=== PATIENT | male | born 1975 | race Caucasian/White ===

== ENCOUNTER → 2019-01-01 11:59 | Outpatient (CLI) | payer OTHER, SELFPAY ==
[2015-12-17 02:15] VITALS: BMI 27.7
[2019-01-01 14:29] LABS: Cholesterol 169 mg/dL (200); High Density Lipoprotein 36 mg/dL; Triglycerides 163 mg/dL; Very Low Density Lipoprotein 33 mg/dL (5-40)
== END ==
PROVIDERS: Family Provider Family Medicine; PCP Family Medicine; Referring Provider Family Medicine; Visit Provider Family Medicine
DX: Z00.00 Encounter for general adult medical examination without abnormal findings (principal)
CPT/HCPCS: 36415; 80061

== ENCOUNTER 2019-05-13 09:36 | Day surgery (SDC) | payer OTHER, SELFPAY ==
[2019-04-22 08:14] VITALS: BMI 27.7
--- NOTE | 2019-04-26 01:00 | HP_ITS ---
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 Is patient in pain?: No Allergies No Known Allergies Allergy (Verified 04/22/19 08:13) Medications Citalopram [Celexa] 20 mg PO DAILY 12/16/15 [History Confirmed 04/22/19] FOR[facility]LY [facility] Surgical History S/P knee surgery (Acute) S/P appendectomy (Acute) Social History (Updated 04/26/19 @ 13:00 by Sorin Vaca MD) Smoking Status: Never smoker alcohol intake: current alcohol intake frequency: a few times a month HPI HPI HPI: KESHA AMAYA, is a 43 M who presents to the office today for HPI HPI Surgical H&P: Yes HPI: KESHA AMAYA is a 43 M who presents to the office today for Update H&P for incisional hernia repair. Patient has no changes with his incisional hernia. He also has several lipomas in his upper anterior abdominal wall that he would like removed as they are painful. ROS General General: No weight change or fatigue Cardio Cardiovascular: No murmur, pacemaker, heart disease, atrial fibrillation, high blood pressure, heart attack, heart stent, palpitations, shortness of breat with exertion or chest pain Psych Psychiatric: Yes depression; no anxiety Resp Respiratory: No shortness of breath, No sleep apnea, No cough, No COPD, No asthma, No emphysema, No wheezing Gastro Gastrointestinal: No abdominal pain, No nausea or vomiting, No diarrhea, No constipation, No blood in stool, Yes acid reflux, No hemorrhoids, No ulcers, No gallbladder problem, No black,tarry stools Dennis Hematologic: No blood thinners Exam Const General: cooperative Orientation: alert, oriented x3 Resp Effort & Inspection: normal respiratory effort Auscultation: clear to auscultation bilaterally Cardio Rate: regular rate Rhythm: regular rhythm Heart Sounds: no murmurs GI Inspection: non-distended Palpation: soft, hernia ventral, nontender, other (Several soft mobile lipomas in the anterior abdominal wall superior to the hernia) Assessment & Plan Problems 1. Lipoma of abdominal wall D17.1 2. Ventral incisional hernia K43.2 Plan The patient has an incisional hernia in the anterior midline from an open appendectomy incision. >I discussed robotic assisted laparoscopic ventral hernia repair with mesh. The patient was counseled on the risks of surgery once more including but not limited to bleeding, infection, underlying bowel injury, recurrence. Patient would like to proceed. Patient also has 4 lipomas in the anterior abdominal wall superior in the epigastric region. These are painful and he would like these removed as well. I discussed removal as well as risks of bleeding and infection. Patient understands and would like to proceed. Sorin Vaca MD Pager: [facility] [address] [place] [address], [address] [place] [address] Office: Coding Level of Care Code Off vis,est,level 3 Diagnoses Lipoma of abdominal wall D17.1 Ventral incisional hernia K43.2 04/26/19 1301 <Electronically signed by Sorin mccabe MD> Date _ Sorin Vaca MD I have re-examined the patient. There are no clinical changes since date of exam.
[2019-05-13] VITALS (7 sets, daily range): BP systolic 124–153; BP diastolic 78–92; PULSE 77–92; RESP 16–20; TEMP 36.6–37.5; O2SAT 95–100; BMI 29.3
[2019-05-13] MEDS: Lactated Ringers 1,000 ML 100 ML IV ×2 (10:08→10:25)
--- NOTE | 2019-05-13 11:00 | LIP_PTH ---
PATIENT: KESHA AMAYA LOC: [facility] [place] U#:[id number] AGE/SX: 43/M ROOM: RE05/13/[address]: Dr. Sorin Vaca MD : 1975 BED: DIS: 05/13/2019 SPEC #: [id number] RECD: 05/13/19 16:14 STATUS: DINORA ELIZABETH #: [id number] SARAH: 05/13/19 11:[address]: Sorin Vaca DEPT: SURGICAL PATHOLOGY RECD BY: Khanh Bacon ENTERED: 05/14/19 09:51 SP TYPE: LIPOMA OTHR DR: Dr. Bridger Beltrán MD Tissues: Soft tissues, NOS Procedures: Surgery Specimen Level III HEADER OPERATION: Lap robotic ventral hernia, mesh/excision PRE-OP DIAGNOSIS: Lipoma of abdominal wall D17.1; ventral incisional hernia K43.2 TISSUE SUBMITTED: Lipomas MICROSCOPIC DIAGNOSIS Lipomas: Angiolipomas x4. Mature adipose tissue consistent with lipoma x1. CLAUDIA:heidi 05/15/19 MICROSCOPIC DESCRIPTION Slides are reviewed. GROSS DESCRIPTION Received in fixative is one container labeled with the patient's name and designated lipomas. The specimen consists of five variable sized pieces of wilson adipose tissue measuring in aggregate 6 x 4.5 x 2.5 cm. measuring 2 to 3.5 cm in greatest dimension. Also present in the container are five smaller pieces of adipose tissue measuring in aggregate 1.5 x 2 x 0.5 cm. Sections reveal yellow adipose cut surfaces without area of hemorrhage, necrosis or cystic degeneration. Debeaker sections are submitted in four cassettes. Cassettes 1 to 3, each contains one lesion (3 larger lesions) and cassette 4 contains the two smaller lesions. / CLAUDIA:heidi 05/14/19 TC:1 [facility]: [id number]
[2019-05-13] MEDS: Cefazolin 2 GM in 0.9% Normal Saline 100 ML IV (11:07)
[2019-05-13] MEDS: Bupiv/Epi 0.5% Mpf 30 ML Vial (13:11)
--- NOTE | 2019-05-13 13:47 | PCM.OPRPT ---
Problem List (1) Incisional hernia Status: Acute Qualifiers: Obstruction and gangrene presence: without obstruction or gangrene Qualified Code(s): K43.2 - Incisional hernia without obstruction or gangrene (2) Lipoma of abdominal wall Status: Acute Report of Operation Date of Procedure: 05/13/19 Pre-Operative Diagnosis: 1. Incisional hernia. 2. Multiple lipomas the anterior abdominal wall Post-Operative Diagnosis: Same Surgery/Procedure Performed:: 1. Robotic assisted laparoscopic incisional hernia repair with mesh. 2. Excision of lipomas in the anterior abdominal wall x5 Specimen's removed: Multiple lipomas Description of Procedure: Patient was brought back to the operating room and general anesthesia was induced. The abdomen was prepped and draped in the usual sterile fashion. An incision was made in the left upper quadrant and the Veress needle was placed into the abdomen and a drop test was performed. The abdomen was then insufflated to 15 mmHg. The Veress needle was removed and a port was placed into this incision. Camera was placed to the port and the abdomen was inspected. There were a lot of adhesions. A spot in the left lateral abdominal wall was located where there were no adhesions and an 8 mm port was placed under direct visualization. Another left lower quadrant 8 mm port was placed under direct visualization as well. Next the robot was docked in a perpendicular fashion. The cautery scissors were used to take down the adhesions to the anterior abdominal wall. These were also used to reduce the hernia contents. Next the hernia defect was closed with a running 0V lock suture in one direction and then repeated back in the opposite direction. Next through the left upper quadrant port and an 11 [address] light ST mesh with echo positioning device was placed into the abdomen. A small incision was made over the hernia defect and the Yonny Lima needle was used to come through this incision and grasped the balloon and elevated. The balloon was insufflated. Next using a 20V lock suture in a continuous fashion the mesh was circumferentially sutured to the anterior abdominal wall. Next the balloon was clipped and then removed through 1 of the ports. Several interrupted 0 Vicryl sutures were used around the interior of the mesh to tack into the anterior abdominal wall. Next the ports were removed and the abdomen was desufflated. 4 additional incisions were made in the anterior abdominal wall as well as one in the right upper quadrant. Several subcutaneous lipomas measuring 2 to 4 cm were removed local anesthetic and closed with interrupted 4-0 Monocryl sutures. Bandages and Steri-Strips were then applied. Patient was then awoken and taken to PACU in stable condition. Patient tolerated procedure well. Grafts/Implants Used: Ventralight ST 11 cm circular mesh - Admit VTE Documentation VTE Mechan Device Prophylaxis: SCD's
--- NOTE | 2019-05-13 13:53 | PCM.DC.HER ---
Discharge Diet: Light diet - advance as tolerated Discharge Activity: Return to Normal Activity, May Not Drive - for 2-3 days or while taking narcotic pain meds., May Shower - with the bandage in place 1-2 days after surgery. Lifting Restrictions: 20 pounds for 6 weeks. Additional Activity Instructions:: Climbing stairs is fine, walking is encouraged. Sitting in bed may be uncomfortable. Sitting up using your lateral muscles (sitting up sideways) is usually more comfortable. Do not drive, work heavy equipment of sign legal documents for 24 hours. Pain medications may cause nausea, you should typically eat light foods as you take your pain medications. Pain medications may also cause constipation. If you have difficulty with this, discuss with your doctor. Call your doctor if your incision/area has: Continuous Slow Oozing, Sudden Increased Bleeding, Increased Pain/ Swelling, Increased Redness, Foul Smelling Discharge Call your doctor if you observe: Fever of 101 or Higher Suture Line Care: Avoid Pulling/Pushing, Avoid Pinching/Bending Change Dressing in (Days):: 3 - Leave steri-strips for 1 week. May protect with a guaze bandaid. Cleanse incision/area with: Keep Dressing Clean & Dry Allergies/Adverse Reactions: Allergies No Known Allergies Allergy (Verified 05/13/19 09:41) Medications to take at Discharge Citalopram [Celexa] 20 mg PO DAILY 12/16/15 Oxycodone HCl/Acetaminophen [Percocet 5-325 mg Tablet] 1 - 2 tab PO Q6H PRN 7 Days #30 tablet 05/13/19 The following prescriptions were given: Oxycodone HCl/Acetaminophen [Percocet 5-325 mg Tablet] 1 - 2 tab PO Q6H PRN 7 Days #30 tablet PRN Reason: Pain Score 4-10/10 Transmission Status: Sent to [facility] Primary Care Physician: Bridger Beltrán MD [Primary Care Provider] - Test Results: Test results from this visit will be discussed in further detail at your follow-up appointment, if applicable. Please Follow Up With: Sorin Vaca MD When: Please call to schedule 2 week follow up appointment. [phone]
[2019-05-13] MEDS: oxyCODONE 5 MG Tablet PO (14:56)
[2019-05-13] MEDS: Acetaminophen 325 MG Tablet PO (14:57)
== END 2019-05-13 16:18 | disposition home or self-care (01) ==
LOC: SDC 09:43 → AC 09:44
PROVIDERS: Family Provider Family Medicine; PCP Family Medicine; Referring Provider Surgery; Visit Provider Surgery
PROC: (CPT 11404; principal; 2019-05-13 10:35)
DX: K43.2 Incisional hernia without obstruction or gangrene (principal); D17.1 Benign lipomatous neoplasm of skin and subcutaneous tissue of trunk
CPT/HCPCS: 00752; 11404; 49654; S2900; 88304; J7120; J2405

== ENCOUNTER → 2019-05-27 10:03 | Outpatient (CLI) | payer OTHER, SELFPAY ==
[2019-05-13 09:58] VITALS: BMI 29.3
--- NOTE | 2019-05-27 10:04 | VDLE_ITS ---
Reason For Study: BLE PAIN RIGHT LEFT GSV is normal. GSV is normal. CFV is compressible, spontaneous, phasic, CFV is compressible, spontaneous, phasic, competent and demonstrates normal competent, and demonstrates normal augmentation. augmentation. FV is compressible, spontaneous, phasic, FV is compressible, spontaneous, phasic, competent and demonstrates normal competent and demonstrates normal augmentation. augmentation. POP V is compressible, spontaneous, phasic, POP V is compressible, spontaneous, phasic, competent and demonstrates normal competent and demonstrates normal augmentation. augmentation. T/P Trunk is compressible. T/P Trunk is compressible. PTV is compressible. PTV is compressible. RT PerV is compressible. LT PerV is compressible. SSV is compressible. SSV is compressible. Procedure Exam performed in department. The exam was diagnostic. A preliminary report was called and/or faxed to Dr. Vaca @ [phone] @ 11:20 am. Interpretation Summary No evidence for acute deep venous thrombosis bilateral lower extremities with patent and compressible bilateral great saphenous veins. Patent and compressible bilateral small saphenous veins Ordering Physician: Sorin Vaca Referring Physician: Bridger Beltrán Performed By: Tasha Clark, LETICIA, RVT
== END ==
PROVIDERS: PCP Family Medicine; Referring Provider Surgery; Visit Provider Surgery
DX: M79.661 Pain in right lower leg (principal); M79.662 Pain in left lower leg
CPT/HCPCS: 93970

== ENCOUNTER 2021-04-27 17:22 | Outpatient (CLI) | payer OTHER, SELFPAY | END 2021-04-27 23:59 | disposition short-term general hospital (02) | PROVIDERS: PCP Family Medicine; Referring Provider Family Medicine; Visit Provider Registered Nurse | DX: U07.1 COVID-19 (principal) | CPT/HCPCS: 87635; U0003; U0005 ==

== ENCOUNTER 2021-05-14 08:06 | Outpatient (CLI) | payer OTHER, SELFPAY ==
[2021-05-14 09:52] LABS: Absolute Neutrophil Count 2.7 X10^3/uL (2.0-7.7); Basophil# 0.03 X10^3/uL; Basophil% 0.5 % (0-1); Eosinophils% 5.2 % (0-5); Hematocrit 44.4 % (40-54); Hemoglobin 15.4 g/dL (13.0-16.5); Lymphocyte % 36.6 % (19-41); Mean Corp Hgb Conc 34.7 g/dL (32-36); Mean Corpuscular Hgb 28.2 pg (27.0-32.0); Mean Corpuscular Volume 81.3 fL (80-94); Mean Platelet Vol. 9.3 fl (6.2-12.0); Monocyte% 10.5 % (0-10); NRBC Flagged by Analyzer 0 % (0-5); Neutrophil # 2.69 X10^3/uL (2.7-7.7); Neutrophil % 46.9 % (47-70); Platelet Count 259 K/mm3 (150-450); RBC Distribution Width CV 12.7 % (11.6-14.6); Red Blood Count 5.46 M/mm3 (4.6-6.2); White Blood Count 5.7 K/mm3 (4.4-11.0)
[2021-05-14 10:10] LABS: Anion Gap 6 (5-15); BUN 15 mg/dL (7-18); BUN/Creat Ratio 14.4 RATIO (10-20); Calcium,Total 8.5 mg/dL (8.5-10.1); Chloride 106 mmol/L (98-107); Cholesterol 191 mg/dL (200); Creatinine, Serum 1.04 mg/dL (0.70-1.30); EST Glomerular Filtration Rate 82 mL/min (>60); Est Glom Filt Rate - Afr Amer 99 mL/min (>60); Glucose 103 mg/dL (74-106); High Density Lipoprotein 40 mg/dL; Potassium 4.1 mmol/L (3.5-5.1); Sodium Level 139 mmol/L (136-145); Triglycerides 98 mg/dL; Uric Acid 6.4 mg/dL (3.5-7.2); Very Low Density Lipoprotein 20 mg/dL (5-40)
[2021-05-14 10:15] LABS: Microalbumin,Random Urine 22.2 mg/L (NO RANGE EST.); Microalbumin:Creatinine Ratio 8.7 mg/g CRE (<30 mg/g CRE)
== END 2021-05-14 23:59 | disposition short-term general hospital (02) ==
LOC: MFPLAB 08:10
PROVIDERS: PCP Family Medicine; Referring Provider Family Medicine; Visit Provider Family Medicine
DX: Z00.00 Encounter for general adult medical examination without abnormal findings (principal); F31.9 Bipolar disorder, unspecified; R03.0 Elevated blood-pressure reading, without diagnosis of hypertension; Z82.69 Family history of other diseases of the musculoskeletal system and connective tissue
CPT/HCPCS: 36415; 80048; 80061; 82043; 82570; 84550; 85025

== ENCOUNTER → 2022-03-04 | Outpatient (CLI) | payer OTHER, SELFPAY ==
[2022-03-04 12:22] LABS: Absolute Lymphocyte Count 1.72 X10^3/uL (0.83-4.51); Absolute Neutrophil Count 7.1 X10^3/uL (2.0-7.7); Basophil# 0.03 X10^3/uL; Basophil% 0.3 % (0-1); Eosinophil# 0.29 X10^3/uL; Eosinophils% 2.9 % (0-5); Hematocrit 37.7 % (40-54); Lymphocyte # 1.72 X10^3/ul (0.83-4.51); Lymphocyte % 17.4 % (19-41); Mean Corp Hgb Conc 31.8 g/dL (32-36); Mean Corpuscular Hgb 26.9 pg (27.0-32.0); Mean Corpuscular Volume 84.5 fL (80-94); Mean Platelet Vol. 8.9 fl (6.2-12.0); Monocyte# 0.74 X10^3/uL; Monocyte% 7.5 % (0-10); NRBC Flagged by Analyzer 0 % (0-5); Neutrophil # 7.06 X10^3/uL (2.7-7.7); Neutrophil % 71.3 % (47-70); Platelet Count 500 K/mm3 (150-450); RBC Distribution Width SD 39.8 fl (35.1-43.9); Red Blood Count 4.46 M/mm3 (4.6-6.2); White Blood Count 9.9 K/mm3 (4.4-11.0)
[2022-03-04 12:38] LABS: BUN 13 mg/dL (7-18); Creatinine, Serum 0.76 mg/dL (0.70-1.30); Glucose 88 mg/dL (74-106)
[2022-03-04 12:39] LABS: ALB/GLOB Ratio 0.6 RATIO (0.9-2.4); AST(SGOT) 28 U/L (15-37); Alanine Aminotransfer ALT/SGPT 71 U/L (16-61); Albumin, Serum 2.9 g/dL (3.2-5.0); Alkaline Phosphatase 151 U/L (45-117); Anion Gap 6 (5-15); BUN/Creat Ratio 17.1 RATIO (10-20); Calcium,Total 9.2 mg/dL (8.5-10.1); Chloride 108 mmol/L (98-107); EST Glomerular Filtration Rate 116 mL/min (>60); Est Glom Filt Rate - Afr Amer 141 mL/min (>60); Globulin 4.6 g/dL (2.2-4.2); Protein, Total 7.5 g/dL (6.4-8.2); Sodium Level 141 mmol/L (136-145)
[2022-03-06 07:51] LABS: ANTINUCLEAR ANTIBODIES DIRECT Negative (Negative)
== END | disposition home or self-care (01) ==
PROVIDERS: PCP Family Medicine; Referring Provider Family Medicine; Visit Provider Family Medicine
DX: J32.9 Chronic sinusitis, unspecified (principal)
CPT/HCPCS: 36415; 80053; 84165; 85025; 86038; 86140; 86225; 86235; 86256; 87070; 87205

== ENCOUNTER → 2022-03-23 | Outpatient (CLI) | payer OTHER, SELFPAY ==
[2022-03-24 16:09] LABS: Cytoplasmic Ab (C-ANCA) <1:20 titer (Neg:<1:20); PROEL- A/G Ratio 1.2 (0.7-1.7); PROEL- Albumin 3.6 g/dL (2.9-4.4); PROEL- Alpha-1 Globulin 0.3 g/dL (0.0-0.4); PROEL- Alpha-2 Globulin 0.8 g/dL (0.4-1.0); PROEL- Gamma Globulin 0.9 g/dL (0.4-1.8); PROEL- Globulin, Total 3.1 g/dL (2.2-3.9); PROEL- TOTAL PROTEIN 6.7 g/dL (6.0-8.5)
[2022-03-24 21:06] LABS: Perinuclear Ab (P-ANCA) <1:20 titer (Neg:<1:20)
== END | disposition home or self-care (01) ==
LOC: MTLAB 07:54
PROVIDERS: PCP Family Medicine; Referring Provider Family Medicine; Visit Provider Family Medicine
DX: J32.9 Chronic sinusitis, unspecified (principal)
CPT/HCPCS: 36415; 84165; 86256

== ENCOUNTER → 2022-04-13 | Outpatient (CLI) | payer OTHER, SELFPAY | END | disposition home or self-care (01) | LOC: LABSPEC 09:13 | PROVIDERS: PCP Family Medicine; Visit Provider Family Medicine | DX: R79.82 Elevated C-reactive protein (CRP) (principal) | CPT/HCPCS: 87070; 87205 ==

== ENCOUNTER → 2022-04-14 | Outpatient (CLI) | payer OTHER, SELFPAY | END | disposition home or self-care (01) | LOC: LABSPEC 08:54 | PROVIDERS: PCP Family Medicine; Visit Provider Family Medicine | DX: R79.82 Elevated C-reactive protein (CRP) (principal) | CPT/HCPCS: 87070; 87205 ==

== ENCOUNTER → 2022-04-15 | Outpatient (CLI) | payer OTHER, SELFPAY | END | disposition home or self-care (01) | LOC: LABSPEC 09:24 | PROVIDERS: PCP Family Medicine; Visit Provider Family Medicine | DX: R79.82 Elevated C-reactive protein (CRP) (principal) | CPT/HCPCS: 87070; 87205 ==

== ENCOUNTER → 2022-04-28 | Outpatient (CLI) | payer OTHER, SELFPAY ==
--- NOTE | 2022-04-28 07:04 | CT_ITS ---
STUDY: CT ABDOMEN AND PELVIS WITH CONTRAST REASON FOR EXAM: Male, 46 years old. Mass versus thrombus in IVC RADIATION DOSAGE (If Supplied By Facility): CTDIvol = ( 20.33 ) mGy, DLP = ( 953.48 ) mGycm TECHNIQUE: Transaxial images were obtained from the dome of the diaphragm to the symphysis pubis with oral contrast. 100 ml of Isovue-370 contrast was administered. Sagittal and coronal images were reconstructed. Individualized dose optimization techniques were used for this CT. COMPARISON: None. FINDINGS: The visualized lung bases are clear. The visualized portions of the heart and pericardium are within normal limits. There are no calcified gallstones present. There is a 1.1 cm simple cyst noted in the left lobe of the liver. The liver is otherwise unremarkable. The spleen is normal in size. The pancreas is within normal limits. The adrenal glands are within normal limits. There are no renal or ureteral stones. There is no hydronephrosis. There are no focal renal lesions. Normal visualized stomach. There is no bowel obstruction or inflammation. The patient is status post appendectomy. The aorta is normal in caliber. The upper IVC is patent and normal in caliber. The infrarenal IVC and bilateral iliac veins do not contain contrast due to early imaging relative to the timing of the contrast bolus and are not well evaluated. There is a small amount of free fluid. There is no free air, fluid collection or lymphadenopathy. There are no destructive osseous lesions. CT/Abdomen/Pelvis WITH Contrast IMPRESSION: Patent upper IVC. The infrarenal IVC and bilateral iliac veins do not contain contrast due to early imaging relative to the timing of the contrast bolus and are not well evaluated. Small amount of free fluid. No free air or fluid collection. No bowel obstruction or inflammation. Status post appendectomy. Normal kidneys. No hydronephrosis. 1.1 cm simple cyst in the liver. Electronically Signed: Steffen Gustafson MD at 8:42 EST ,
--- NOTE | 2022-04-28 07:05 | CT_ITS ---
STUDY: CT CHEST WITHOUT CONTRAST REASON FOR EXAM: Male, 46 years old. Cough. RADIATION DOSAGE (If Supplied By Facility): CTDIvol = ( 15.22 ) mGy, DLP = ( 600.78 ) mGycm TECHNIQUE: Transaxial imaging was performed without the administration of intravenous contrast material. Coronal and sagittal reformatted images were created. Individualized dose optimization techniques were used for this CT. COMPARISON: None FINDINGS: There are small bilateral pleural effusions with overlying atelectasis. There are no pulmonary infiltrates. There is no pneumothorax. The heart is normal in size. There is a small pericardial effusion. There is no thoracic lymphadenopathy. There is no evidence of thoracic aortic aneurysm. Please see the report for the CT of the abdomen and pelvis which is dictated separately. There are no destructive osseous lesions. CT/Chest without Contrast IMPRESSION: Small bilateral pleural effusions with overlying atelectasis. No pulmonary infiltrates. Small pericardial effusion. Electronically Signed: Steffen Gustafson MD at 8:32 EST ,
--- NOTE | 2022-04-28 07:16 | CT_ITS ---
STUDY: CT MAXILLOFACIAL SINUSES REASON FOR EXAM: Male, 46 years old. Headache, fevers, facial pain RADIATION DOSAGE (If Supplied By Facility): CTDIvol = ( 29.38 ) mGy, DLP = ( 444.61 ) mGycm TECHNIQUE: The patient was scanned in a multi detector CT scanner. High resolution axial imaging was performed without the administration of intravenous contrast material. Sagittal and coronal images were reconstructed. Individualized dose optimization techniques were used for this CT. COMPARISON: None. FINDINGS: FRONTAL SINUSES: Normal aeration, with minimal mucosal inflammatory disease. ETHMOIDAL SINUSES: Normal aeration, with minimal mucosal inflammatory disease. MAXILLARY SINUSES: Normal aeration, with minimal mucosal inflammatory disease. SPHENOIDAL SINUSES: Normal aeration, without mucosal inflammatory disease. There is patency of the left maxillary infundibuli with normal uncinate processes, ethmoid bullae, and hiatus semilunaris. There is stenosis of the right ostiomeatal complex due to mucosal thickening, this is best seen on coronal reconstructed image 52 Normal bilateral middle turbinates. Normal bilateral inferior turbinates. Normal midline nasal septum. There is patency of the bilateral nasal airways. The visualized osseous structures are normal. The visualized bilateral orbital contents are normal. CT/Sinus/Facial Bone IMPRESSION: Minimal mucosal thickening noted in the left frontal, ethmoids and right maxillary sinus. Narrowing/stenosis of the right ostiomeatal complex Electronically Signed: Crow Ward MD at 10:57 EST ,
== END | disposition home or self-care (01) ==
LOC: CT 07:02
PROVIDERS: PCP Family Medicine; Referring Provider Family Medicine; Visit Provider Family Medicine
DX: R79.82 Elevated C-reactive protein (CRP) (principal); J32.9 Chronic sinusitis, unspecified
CPT/HCPCS: 70486; 71250; 74177; Q9967

== ENCOUNTER → 2022-05-26 | Outpatient (CLI) | payer OTHER, SELFPAY ==
[2022-05-26 10:31] LABS: Absolute Lymphocyte Count 1.67 X10^3/uL (0.83-4.51); Absolute Neutrophil Count 3.4 X10^3/uL (2.0-7.7); Basophil# 0.03 X10^3/uL; Basophil% 0.5 % (0-1); Eosinophil# 0.22 X10^3/uL; Eosinophils% 3.8 % (0-5); Hemoglobin 14.3 g/dL (13.0-16.5); Lymphocyte # 1.67 X10^3/ul (0.83-4.51); Lymphocyte % 28.6 % (19-41); Mean Corp Hgb Conc 31.8 g/dL (32-36); Mean Corpuscular Volume 78.7 fL (80-94); Mean Platelet Vol. 9.3 fl (6.2-12.0); Monocyte# 0.51 X10^3/uL; Monocyte% 8.7 % (0-10); NRBC Flagged by Analyzer 0 % (0-5); Neutrophil # 3.38 X10^3/uL (2.7-7.7); Neutrophil % 58.1 % (47-70); Platelet Count 291 K/mm3 (150-450); RBC Distribution Width CV 16.3 % (11.6-14.6); RBC Distribution Width SD 46.3 fl (35.1-43.9); Red Blood Count 5.72 M/mm3 (4.6-6.2); White Blood Count 5.8 K/mm3 (4.4-11.0)
[2022-05-26 11:37] LABS: ALB/GLOB Ratio 0.8 RATIO (0.9-2.4); AST(SGOT) 23 U/L (15-37); Alanine Aminotransfer ALT/SGPT 45 U/L (16-61); Albumin, Serum 3.6 g/dL (3.2-5.0); Alkaline Phosphatase 229 U/L (45-117); Anion Gap 10 (5-15); BUN 11 mg/dL (7-18); BUN/Creat Ratio 10.6 RATIO (10-20); Calcium,Total 9.2 mg/dL (8.5-10.1); Chloride 105 mmol/L (98-107); Creatinine, Serum 1.04 mg/dL (0.70-1.30); EST Glomerular Filtration Rate 81 mL/min (>60); Est Glom Filt Rate - Afr Amer 98 mL/min (>60); Globulin 4.4 g/dL (2.2-4.2); Glucose 102 mg/dL (74-106); Potassium 4.2 mmol/L (3.5-5.1); Sodium Level 139 mmol/L (136-145)
[2022-05-27 20:10] LABS: ANTINUCLEAR ANTIBODIES DIRECT Negative (Negative)
== END | disposition home or self-care (01) ==
LOC: MTLAB 08:29
PROVIDERS: PCP Family Medicine; Referring Provider Family Medicine; Visit Provider Family Medicine
DX: I31.39 Other pericardial effusion (noninflammatory) (principal)
CPT/HCPCS: 36415; 80053; 85025; 86038; 86140; 86618; 86658

== ENCOUNTER → 2022-05-31 | Outpatient (CLI) | payer OTHER, SELFPAY ==
[2022-05-31 10:22] LABS: PTHIN 49.7 pg/mL (18.4-80.1)
[2022-05-31 10:27] LABS: Amylase 33 U/L (25-115); Magnesium 2.1 mg/dL (1.6-2.6)
== END | disposition home or self-care (01) ==
LOC: MFPLAB 08:31
PROVIDERS: PCP Family Medicine; Referring Provider Family Medicine; Visit Provider Family Medicine
DX: R74.8 Abnormal levels of other serum enzymes (principal); I31.9 Disease of pericardium, unspecified
CPT/HCPCS: 36415; 82150; 82164; 83735; 83970; 84075; 84080; 84100; 86480; 86644; 86645; 86658

== ENCOUNTER → 2022-06-03 | Outpatient (CLI) | payer OTHER, SELFPAY ==
[2022-06-03 17:36] LABS: BNP,B-Type NATRIURETIC PEPTIDE 31.4 pg/mL (0-100)
== END | disposition home or self-care (01) ==
LOC: LAB 15:19
PROVIDERS: PCP Family Medicine; Referring Provider Internal Medicine Cardiovascular Disease; Visit Provider Internal Medicine Cardiovascular Disease
DX: I31.39 Other pericardial effusion (noninflammatory) (principal)
CPT/HCPCS: 36415; 83880

== ENCOUNTER → 2022-06-07 | Outpatient (CLI) | payer OTHER, SELFPAY ==
--- NOTE | 2022-06-07 07:53 | ECHOD_ITS ---
Reason For Study: SOB Procedure This was a 2D Doppler, Color Flow transthoracic echocardiogram. Exam performed in department. Left Ventricle Normal LV size. Left ventricular systolic function is normal. The estimated ejection fraction is 55 %. Normal diastology for age. No regional wall motion abnormalities noted. Right Ventricle Normal RV size. Normal systolic function. Atria Normal left atrium. Normal right atrium. Mitral Valve Normal mitral valve. Tricuspid Valve Normal tricuspid valve. Aortic Valve Normal aortic valve. Trisinus/trileaflet aortic valve. Pulmonic Valve Normal pulmonic valve. Great Vessels Normal aortic root. The pulmonary artery is normal size. Normal inferior vena cava. Pericardium/Pleural No pericardial effusion. MMode/2D Measurements & Calculations LVIDd: 4.0 cm IVSd: 0.69 cm Ao root diam: 3.2 cm LVIDs: 2.6 cm LVPWd: 0.77 cm RVDd: 2.7 cm FS: 35.0 % LAV(MOD-bp): 47.2 ml LVAd ap4: 28.3 cm2 SV(MOD-sp4): 49.0 ml LAV(MOD-bp) Indexed: 22.9 ml/m2 LVLd ap4: 7.9 cm LAV(MOD-sp2): 43.7 ml EDV(MOD-sp4): 81.2 ml LAV(MOD-sp4): 41.1 ml EDV(sp4-el): 85.8 ml LVAs ap4: 15.7 cm2 LVLs ap4: 6.3 cm ESV(MOD-sp4): 32.2 ml ESV(sp4-el): 33.5 ml EF(MOD-sp4): 60.4 % EF(sp4-el): 61.0 % SV(sp4-el): 52.3 ml LA A4 area: 17.7 cm2 LA dimension(2D): 3.9 cm RA A4 area: 17.5 cm2 Time Measurements MV dec time: 0.18 sec Doppler Measurements & Calculations MV E max eleuterio: 85.0 cm/sec Lat Peak E' Eleuterio: 17.8 cm/sec Med Peak E' Eleuterio: 19.5 cm/sec MV A max eleuterio: 52.7 cm/sec E/E' lat: 4.8 E/E' med: 4.4 MV E/A: 1.6 Ao V2 max: 93.4 cm/sec LV V1 max: 91.4 cm/sec PA V2 max: 68.8 cm/sec Ao max P.5 mmHg LV V1 max P.3 mmHg ECHO/Echo Complete Interpretation Summary Normal LV size. Left ventricular systolic function is normal. The estimated ejection fraction is 55 %. No pericardial effusion. Structurally normal valves. Ordering Physician: Jesica Beltrán Referring Physician: JESICA BELTRÁN Performed By: [place], Deann, RDCS
== END | disposition home or self-care (01) ==
LOC: CVS 07:52
PROVIDERS: PCP Family Medicine; Visit Provider Family Medicine
DX: R06.02 Shortness of breath (principal)
CPT/HCPCS: 93306

== ENCOUNTER → 2022-08-16 | Outpatient (CLI) | payer OTHER, SELFPAY | END | disposition home or self-care (01) | LOC: PSN 07:37 | PROVIDERS: PCP Family Medicine; Referring Provider Nurse Practitioner Family; Visit Provider Nurse Practitioner Family | DX: R00.2 Palpitations (principal) | CPT/HCPCS: 93225; 93226 ==

== ENCOUNTER → 2023-08-10 | Outpatient (CLI) | payer OTHER, SELFPAY ==
--- NOTE | 2023-08-10 09:06 | RAD_ITS ---
STUDY: X-RAY CHEST REASON FOR EXAM: Male, 47 years old. F/u for RML pneumonia with effusion TECHNIQUE: PA and lateral views of the chest. COMPARISON: None. FINDINGS: Small right pleural effusion with right basilar infiltration/atelectasis. Left lung is clear. Normal size heart. Normal mediastinum and marifer. Normal visualized pulmonary arteries. Normal visualized aortic arch and descending thoracic aorta. Normal visualized thoracic spine. Normal visualized ribs, clavicles, and shoulders. There is no demonstrated abnormality of the visualized soft tissue structures of the upper abdomen. RAD/Chest PA and Lateral IMPRESSION: Small right pleural effusion with left basilar atelectasis/infiltrate. Electronically Signed: Hero Horn MD at 9:41 EDT ,
== END | disposition home or self-care (01) ==
LOC: MTRAD 09:06
PROVIDERS: PCP Family Medicine; Referring Provider Family Medicine; Visit Provider Family Medicine
DX: J90 Pleural effusion, not elsewhere classified (principal)
CPT/HCPCS: 71046

== ENCOUNTER → 2023-08-11 | Outpatient (CLI) | payer OTHER, SELFPAY ==
[2023-08-11 10:28] LABS: Absolute Lymphocyte Count 1.33 X10^3/uL (0.83-4.51); Absolute Neutrophil Count 4.1 X10^3/uL (2.0-7.7); Basophil# 0.03 X10^3/uL; Basophil% 0.5 % (0-1); Eosinophil# 0.25 X10^3/uL; Eosinophils% 3.9 % (0-5); Hematocrit 44.2 % (40-54); Hemoglobin 14.2 g/dL (13.0-16.5); Lymphocyte # 1.33 X10^3/ul (0.83-4.51); Lymphocyte % 20.8 % (19-41); Mean Corp Hgb Conc 32.1 g/dL (32-36); Mean Corpuscular Hgb 26.9 pg (27.0-32.0); Mean Corpuscular Volume 83.9 fL (80-94); Mean Platelet Vol. 9.9 fl (6.2-12.0); Monocyte# 0.65 X10^3/uL; Monocyte% 10.2 % (0-10); NRBC Flagged by Analyzer 0 % (0-5); Neutrophil # 4.09 X10^3/uL (2.7-7.7); Neutrophil % 64.1 % (47-70); Platelet Count 229 K/mm3 (150-450); RBC Distribution Width CV 13.8 % (11.6-14.6); RBC Distribution Width SD 42.3 fl (35.1-43.9); Red Blood Count 5.27 M/mm3 (4.6-6.2); White Blood Count 6.4 K/mm3 (4.4-11.0)
[2023-08-11 11:10] LABS: ALB/GLOB Ratio 0.9 RATIO (0.9-2.4); AST(SGOT) 20 U/L (15-37); Alanine Aminotransfer ALT/SGPT 28 U/L (16-61); Albumin, Serum 3.8 g/dL (3.2-5.0); Alkaline Phosphatase 300 U/L (45-117); Anion Gap 5 (5-15); BUN 16 mg/dL (7-18); BUN/Creat Ratio 15.8 RATIO (10-20); Calcium,Total 9.1 mg/dL (8.5-10.1); Chloride 105 mmol/L (98-107); Creatinine, Serum 1.01 mg/dL (0.70-1.30); EST Glomerular Filtration Rate 84 mL/min (>60); Est Glom Filt Rate - Afr Amer 101 mL/min (>60); Globulin 4.1 g/dL (2.2-4.2); Glucose 101 mg/dL (74-106); Protein, Total 7.9 g/dL (6.4-8.2); Sodium Level 137 mmol/L (136-145); Thyroid Stim Hormone (TSH) 3.48 uIU/mL (0.358-3.74)
[2023-08-11 14:24] LABS: Microalbumin,Random Urine 22.8 mg/L (NO RANGE EST.); Microalbumin:Creatinine Ratio 14.8 mg/g CRE (<30 mg/g CRE)
[2023-08-11 14:29] LABS: Erythrocyte Sedimentation Rate 12 mm/hr (0-20)
[2023-08-14 13:07] LABS: ANTINUCLEAR ANTIBODIES DIRECT Negative (Negative)
[2023-08-15 19:07] LABS: PROEL- A/G Ratio 1.2 (0.7-1.7); PROEL- Albumin 3.9 g/dL (2.9-4.4); PROEL- Alpha-1 Globulin 0.3 g/dL (0.0-0.4); PROEL- Alpha-2 Globulin 0.7 g/dL (0.4-1.0); PROEL- Gamma Globulin 1.4 g/dL (0.4-1.8); PROEL- Globulin, Total 3.3 g/dL (2.2-3.9); PROEL- TOTAL PROTEIN 7.2 g/dL (6.0-8.5); PROEL-M-Spike Not Observed g/dL (Not Observed); QNTFERON TB Mitogen Value > 10.00 IU/mL (.); QNTFERON TB Nil Value 0.01 IU/mL (.); QNTFERON TB1+ Ag Value 0.02 IU/mL (.); QNTFERON TB2+ Ag Value 0.02 IU/mL (.); QNTIFERON TB Positive Criteria Negative (Negative)
== END | disposition home or self-care (01) ==
LOC: MFPLAB 08:32
PROVIDERS: PCP Family Medicine; Visit Provider Family Medicine
DX: R79.82 Elevated C-reactive protein (CRP) (principal); J90 Pleural effusion, not elsewhere classified
CPT/HCPCS: 36415; 80053; 82043; 82570; 84165; 84443; 85025; 85652; 86038; 86140; 86480

== ENCOUNTER → 2023-08-31 | Outpatient (CLI) | payer OTHER, SELFPAY ==
--- NOTE | 2023-08-31 07:03 | CT_ITS ---
INDICATION: history pneumonia and pericardial effusion EXAMINATION: CT CHEST WITH CONTRAST - CT Chest W/ Contrast Injection TECHNIQUE: Helically acquired images were obtained of the chest following IV contrast. The protocol utilizes one or more of the following dose reduction techniques: automated exposure control, adjustment of mA and/or kV according to patient size,and/or use of iterative reconstruction technique. IV Contrast dosage and agent: 100 cc of Isovue-370 RADIATION DOSAGE (If Supplied By Facility): CTDIvol = ( 14 ) mGy, DLP = ( 440.56 ) mGycm COMPARISON: April 28, 2023 FINDINGS: LUNGS, PLEURA AND LARGE AIRWAYS: There is a right pleural effusion that has increased in size since the prior examination that is partially loculated anteriorly. There is subpleural consolidation within the right middle and right lower lobes that has a rounded configuration. THYROID: No thyroid lesions. HEART AND PERICARDIUM: Heart size is normal. There is a small pericardial effusion that has decreased in size since the prior examination. No coronary artery calcifications are visualized. VESSELS: Thoracic aorta is not dilated. No aortic dissection. No obvious central pulmonary embolism although this study was not performed with the pulmonary embolism protocol. MEDIASTINUM AND KARMEN: There are prominent and enlarged mediastinal lymph nodes that have slightly increased in size since the prior examination. Esophagus is unremarkable. No hiatal hernia. UPPER ABDOMEN: The limited images of the upper abdomen demonstrate a stable low-attenuation focus within the left hepatic lobe which may reflect a cyst or hemangioma. BONES: No suspicious lytic or blastic abnormality. CT/Chest WITH Contrast IMPRESSION: Interval enlargement of right pleural effusion associated with somewhat rounded consolidation within the right middle and lower lobes, may reflect pneumonia and/or atelectasis, recommend short interval follow-up in 8-10 weeks for cannot exclude an underlying neoplastic process Interval decrease in size of pericardial effusion. Stable prominent and enlarged mediastinal lymph nodes may be reactive. Electronically Signed: Dianelys Barillas MD at 8:37 EDT ,
== END | disposition home or self-care (01) ==
LOC: CT 07:02
PROVIDERS: PCP Family Medicine; Referring Provider Family Medicine; Visit Provider Family Medicine
DX: J90 Pleural effusion, not elsewhere classified (principal)
CPT/HCPCS: 71260; Q9967

== ENCOUNTER → 2023-09-20 | Outpatient (CLI) | payer OTHER, SELFPAY ==
[2023-09-20] VITALS (12 sets, daily range): BP systolic 55–130; BP diastolic 32–86; PULSE 75–80; RESP 16–18; O2SAT 98–100
--- NOTE | 2023-09-20 | FLU_PTH ---
PATIENT: KESHA AMAYA LOC: U#:[id number] AGE/SX: 47/M ROOM: RE09/20/[address]: Dr. Demetrius Perez MD : 1975 BED: DIS: 09/20/2023 SPEC #: [id number] RECD: 09/20/23 11:45 STATUS: DINORA ELIZABETH #: [id number] SARAH: 09/20/23 00:[address]: Demetrius Perez V DEPT: CYTOLOGY RECD BY: Santi Mckeon ENTERED: 09/20/23 12:33 SP TYPE: Fluid OTHR DR: Dr. Bridger Beltrán MD Tissues: THORACIC FLUID Procedures: Special Stain Group II Surgery Specimen Level IV Cytospin Fluid HEADER OPERATION: Ultrasound guided thoracentesis PRE-OP DIAGNOSIS: Pleural effusion TISSUE SUBMITTED: Thoracentesis fluid for cytology DIAGNOSIS CYTOLOGY Thoracentesis fluid for cytology (cytospin and cellblock): Negative for malignant cells. HORTENSIA/ 09/21/2023 CYTOLOGY STUDY Slides are reviewed. CYTOLOGY GROSS Received is 90 ml of cloudy shady fluid labeled with the patient's name and and designated per the requisition as Thoracentesis fluid. Submitted for cytology preparation including cell block. mr 09/20/2023 TC:5 CPT: 71323
--- NOTE | 2023-09-20 10:56 | US_ITS ---
PROCEDURE: ULTRASOUND GUIDED THORACENTESIS. DATE: September 20, 2023.. INDICATION: Male, 47 years old. Right pleural effusion PHYSICIAN: Hero Horn M.D. PROCEDURE: The risks, benefits, and alternatives to the procedure were explained to the . The specific risks of bleeding, infection, and pneumothorax requiring chest tube insertion were discussed and accepted. Written informed consent was obtained. Ultrasonographic evaluation of the right lower pleural space was carried out. An adequate pocket was identified. The patient was placed in the sitting, upright position. The overlying skin was prepped and draped in sterile fashion. 1% lidocaine was administered subcutaneously for local anesthesia. Under ultrasound guidance, a 5 Polish thoracentesis needle/catheter system was advanced into the right posterior lower pleural fluid collection. Approximately 120 mL of red-tinged cloudy fluid was drained. The catheter was removed, and a sterile dressing was applied. A specimen was collected and sent to the laboratory for analysis, as requested by the referring clinician. The patient tolerated the procedure well. A chest x-ray was ordered. US/Thoracentesis W US IMPRESSION: Ultrasound-guided right thoracentesis. Electronically Signed: Hero Horn MD at 13:46 EDT ,
[2023-09-20] MEDS: Lidocaine 2% (20 ml mdv) 20 ML Vial INFILT (11:17)
--- NOTE | 2023-09-20 11:30 | RAD_ITS ---
STUDY: X-RAY CHEST REASON FOR EXAM: Male, 47 years old. Immediately post thoracentesis TECHNIQUE: AP inspiration and expiration views. COMPARISON: Comparison is made with prior study of August 10, 2023. FINDINGS: The patient is status post right thoracentesis. No evidence of pneumothorax. Residual right pleural parenchymal changes. RAD/Chest Insp/Exp 2 View IMPRESSION: No evidence of pneumothorax on the immediate post right thoracentesis. Electronically Signed: Hero Horn MD at 12:45 EDT ,
[2023-09-20 11:50] LABS: Cytology, Body Fluid / CSF SEE PATHOLOGY REPORT
[2023-09-20 12:13] LABS: Body Fluid Mononuclear WBC # 0.806 10^3/uL; Body Fluid Mononuclear WBC % 98.2 %; Body Fluid Polynuclear WBC # 0.014 10^3/uL; Body Fluid Polynuclear WBC % 1.8 %
[2023-09-20 12:16] LABS: Appearance/Body Fluid SL CLDY; Auto B Fluid Analyzer BKGD Ct COUNTS W/IN LIMITS (W/IN LIMITS); Color/Body Fluid YELLOW; Source- Body Fluid THORACENTESIS
[2023-09-20 13:21] LABS: Glucose, Body Fluid 92 mg/dL (40-70); LDH,Body Fluid 189 Units/L (Not Establ.)
[2023-09-20 14:25] LABS: Lymphocytes 85 %; Mesothelial Cells 5 %; Monocytes 4 %; Neutrophil (Segs) 6 %
[2023-09-20 14:26] LABS: Body Fluid QC Type(s) BF2Q
[2023-09-21 16:10] LABS: Pathologist Comment/Body Fluid Reviewed
[2023-09-25 16:09] LABS: pH, Body Fluid 11254 7.4 (Not Estab.)
== END | disposition home or self-care (01) ==
LOC: US 10:54
PROVIDERS: PCP Family Medicine; Referring Provider Internal Medicine Pulmonary Disease; Visit Provider Internal Medicine Pulmonary Disease
DX: J90 Pleural effusion, not elsewhere classified (principal); R06.00 Dyspnea, unspecified
CPT/HCPCS: 32555; 71046; 82945; 82947; 83615; 83986; 87015; 87070; 87075; 87101; 87116; 87205; 87206; 88108; 88305; 88313; 89050

== ENCOUNTER → 2023-10-02 | Outpatient (CLI) | payer OTHER, SELFPAY ==
--- NOTE | 2023-10-02 17:36 | RAD_ITS ---
STUDY: X-RAY CHEST REASON FOR EXAM: Male, 48 years old. DYSPNEA, -- PLEURAL EFFUSION TECHNIQUE: Complete chest, minimum of four views COMPARISON: Comparison is made with prior study dated September 20, 2023. FINDINGS: Progressive right pleural effusion with right basilar infiltration and/or atelectasis. Small free-flowing right pleural effusion. Normal size heart. Normal mediastinum and marifer. Normal visualized pulmonary arteries. Normal visualized aortic arch and descending thoracic aorta. Normal visualized thoracic spine. Normal visualized ribs, clavicles, and shoulders. There is no demonstrated abnormality of the visualized soft tissue structures of the upper abdomen. RAD/Chest Min 4 Views IMPRESSION: Small free flowing right pleural effusion with right basilar infiltration and/or atelectasis. Electronically Signed: Hero Horn MD at 14:35 EDT ,
[2023-10-04 13:09] LABS: Anti-Scleroderma-70 AB 0.2 AI (0.0-0.9); Anti-dsDNA Ab 2 IU/mL (0-9); RNP Ab 0.2 AI (0.0-0.9); SJOGREN'S Anti-SS-A test < 0.2 AI (0.0-0.9); SJOGREN'S Anti-SS-B test < 0.2 AI (0.0-0.9)
[2023-10-04 16:10] LABS: Angiotensin Convert Enzyme 48 U/L (14-82); Anti-Smooth Muscle ABS 9 Units (0-19); CCP IgG Antibodies 3 units (0-19); Cytoplasmic Ab (C-ANCA) <1:20 titer (Neg:<1:20); Perinuclear Ab (P-ANCA) <1:20 titer (Neg:<1:20)
== END | disposition home or self-care (01) ==
PROVIDERS: PCP Family Medicine; Referring Provider Internal Medicine Pulmonary Disease; Visit Provider Internal Medicine Pulmonary Disease
DX: J90 Pleural effusion, not elsewhere classified (principal); R06.00 Dyspnea, unspecified
CPT/HCPCS: 36415; 71048; 82164; 83516; 86140; 86200; 86225; 86235; 86256